=== PATIENT | female | born 1980 | race Caucasian/White ===

== ENCOUNTER 2020-07-28 06:13 | Day surgery (SDC) | payer OTHER, SELFPAY ==
[2020-07-21 12:33] LABS: BASOPHILS % (AUTO) 0.5 % (0.0-2.0); EOSINOPHILS # (AUTO) 0.1 K/uL (0-0.4); EOSINOPHILS % (AUTO) 0.8 % (0.0-4.0); HEMATOCRIT 35.4 % (36-48); HEMOGLOBIN 11.7 g/dL (12.0-16.0); LYMPHOCYTES # (AUTO) 1.8 K/uL (2.5-16.5); LYMPHOCYTES % (AUTO) 26.5 % (20.5-51.1); MEAN CORPUSCULAR HEMOGLOBIN 28 pg (27-31); MEAN CORPUSCULAR HGB CONC 33 g/dL (33-37); MEAN CORPUSCULAR VOLUME 83.2 fL (80-94); MONOCYTES # (AUTO) 0.5 K/uL (0.8-1.0); MONOCYTES % (AUTO) 6.9 % (1.7-9.3); NEUTROPHILS # (AUTO) 4.6 K/uL (1.8-7.7); NEUTROPHILS % (AUTO) 65.3 % (42.2-75.2); PLATELET COUNT (AUTO) 229 K/uL (140-450); RED BLOOD CELL COUNT(AUTO) 4.26 MIL/uL (4.20-5.40); RED CELL DISTRIBUTION WIDTH 13.7 % (11.6-13.7)
[2020-07-21 14:25] LABS: ALBUMIN 3.9 g/dL (3.4-5.0); ANION GAP 11.3 (8-16); CARBON DIOXIDE 26.2 mmol/L (21-32); CREATININE 0.7 mg/dL (0.6-1.3); POTASSIUM 3.5 mmol/L (3.5-5.1); TOTAL BILIRUBIN 0.4 mg/dL (0.0-1.0)
[~2020-07-28] VITALS: Ht 167.6 cm; Wt 60.8 kg
[2020-07-28 06:50] LABS: BASOPHILS % (AUTO) 0.2 % (0.0-2.0); EOSINOPHILS # (AUTO) 0.1 K/uL (0-0.4); EOSINOPHILS % (AUTO) 1.2 % (0.0-4.0); HEMATOCRIT 36.4 % (36-48); HEMOGLOBIN 11.9 g/dL (12.0-16.0); LYMPHOCYTES # (AUTO) 2.2 K/uL (2.5-16.5); LYMPHOCYTES % (AUTO) 31.4 % (20.5-51.1); MEAN CORPUSCULAR HEMOGLOBIN 27 pg (27-31); MEAN CORPUSCULAR HGB CONC 33 g/dL (33-37); MEAN CORPUSCULAR VOLUME 83.7 fL (80-94); MONOCYTES # (AUTO) 0.6 K/uL (0.8-1.0); MONOCYTES % (AUTO) 8.6 % (1.7-9.3); NEUTROPHILS # (AUTO) 4.2 K/uL (1.8-7.7); NEUTROPHILS % (AUTO) 58.6 % (42.2-75.2); PLATELET COUNT (AUTO) 244 K/uL (140-450); RED BLOOD CELL COUNT(AUTO) 4.35 MIL/uL (4.20-5.40); RED CELL DISTRIBUTION WIDTH 13.6 % (11.6-13.7); WHITE BLOOD COUNT (AUTO) 7.1 K/uL (4.8-10.8)
[2020-07-28 07:07] LABS: ALBUMIN 3.8 g/dL (3.4-5.0); ANION GAP 11.5 (8-16); CREATININE 0.8 mg/dL (0.6-1.3); POTASSIUM 3.5 mmol/L (3.5-5.1); TOTAL BILIRUBIN 0.5 mg/dL (0.0-1.0)
[2020-07-28] MEDS ORDERED: COMMUNICATION ORDER MC PRN (07:35)
[2020-07-28] MEDS ORDERED: FERRIC SUBSULFATE TP SCH (07:50)
[2020-07-28] MEDS ORDERED: POTASSIUM IODIDE/IODINE 5% 14 ML BTL MC ONE (07:50)
[2020-07-28] MEDS ORDERED: MEPERIDINE 25 MG/ML SYR IVP PRN (07:55)
[2020-07-28] MEDS ORDERED: ONDANSETRON 4 MG/2 ML VIAL IVP PRN (07:55)
[2020-07-28] MEDS ORDERED: oxyCODONE/APAP 5/325 MG 1 TAB TAB PO PRN (07:55)
[2020-07-28] MEDS ORDERED: diphenhydrAMINE 50 MG/ML VIAL IVP PRN (07:55)
[2020-07-28] MEDS ORDERED: fentaNYL citrate 0.05 MG/ML VIAL IVP PRN (07:55)
[2020-07-28] MEDS ORDERED: LACTATED RINGERS 1,000 ML IV SCH (07:55)
[2020-07-28] MEDS ORDERED: METOCLOPRAMIDE 10 MG/2 ML INJ VIAL ONE (08:09)
[2020-07-28] MEDS ORDERED: ONDANSETRON 4 MG/2 ML VIAL ONE (08:09)
[2020-07-28] MEDS ORDERED: ROCURONIUM 50 MG/5 ML VIAL IV ONE (08:09)
[2020-07-28] MEDS ORDERED: fentaNYL citrate 0.05 MG/ML VIAL ONE (08:09)
[2020-07-28] MEDS ORDERED: DEXAMETHASONE 4 MG/ML VIAL ONE (08:09)
[2020-07-28] MEDS ORDERED: GLYCOPYRROLATE 0.2 MG/ML VIAL ONE (08:09)
[2020-07-28] MEDS ORDERED: LIDOCAINE MPF 2% 100 MG/5 ML VIAL INJ ONE (08:09)
[2020-07-28] MEDS ORDERED: SEVOFLURANE 250 ML BTL INH ONE (08:09)
[2020-07-28] MEDS ORDERED: NEOSTIGMINE 1:1000 10 MG/10 ML VIAL ONE (08:09)
[2020-07-28] MEDS ORDERED: PROPOFOL 200 MG/20 ML VIAL IV ONE (08:09)
[2020-07-28] MEDS ORDERED: KETOROLAC 30 MG/ML VIAL ONE (08:09)
== END 2020-07-28 10:20 | disposition home or self-care (01) ==
LOC: MFCC 06:13 → MDS 06:13
PROVIDERS: ATTEND Obstetrics & Gynecology
DX: D06.9 Carcinoma in situ of cervix, unspecified (principal); Z20.828 Contact with and (suspected) exposure to other viral communicable diseases
CPT/HCPCS: 36415; 57522; 80053; 81025; 84702; 85025; 93005; J1100; J1885; J2001; J2405; J2704; J2710; J2765; J3010; J3490; U0003